=== PATIENT | female | born 1985 | race Asian ===

== ENCOUNTER 2017-07-15 05:54 | Inpatient (IN) | payer SELFPAY ==
[~2017-07-15] VITALS: Ht 160 cm; Wt 56.7 kg
[2017-07-15] MEDS ORDERED: METHYLERGONOVINE 0.2 MG/ML AMP IM PRN ×3 (06:40→21:55)
[2017-07-15] MEDS ORDERED: NALBUPHINE HYDROCHLORIDE 10 MG/ML VIAL IVP PRN (06:40)
[2017-07-15] MEDS ORDERED: PROMETHAZINE 25 MG/ML VIAL IVP PRN (06:40)
[2017-07-15] MEDS ORDERED: CARBOPROST 250 MCG/ML AMP IM PRN (06:40)
[2017-07-15] MEDS ORDERED: LACTATED RINGERS 500 ML IV SCH (06:40)
[2017-07-15] MEDS ORDERED: AMPICILLIN 2,000 MG in NACL 0.9% MINI-BAG PLUS 100 ML IV ONE (07:00)
[2017-07-15] MEDS ORDERED: BUPIVACAINE 0.125%/NS PREMIX 250 ML ONE (07:00)
[2017-07-15 07:20] LABS: BASOPHILS # (AUTO) 0.1 K/uL (0.00-0.22); EOSINOPHILS # (AUTO) 0.1 K/uL (0-0.4); EOSINOPHILS % (AUTO) 1.2 % (0.0-4.0); HEMATOCRIT 36.3 % (36-48); HEMOGLOBIN 12.1 g/dL (12.0-16.0); LYMPHOCYTES # (AUTO) 1.4 K/uL (2.5-16.5); MEAN CORPUSCULAR HEMOGLOBIN 31 pg (27-31); MEAN CORPUSCULAR HGB CONC 34 g/dL (33-37); MEAN CORPUSCULAR VOLUME 92 fL (80-94); MONOCYTES # (AUTO) 0.8 K/uL (0.8-1.0); NEUTROPHILS # (AUTO) 9.2 K/uL (1.8-7.7); NEUTROPHILS % (AUTO) 78.8 % (42.2-75.2); PLATELET COUNT (AUTO) 162 K/uL (140-450); RED BLOOD CELL COUNT(AUTO) 3.96 MIL/uL (4.20-5.40); RED CELL DISTRIBUTION WIDTH 14.1 % (11.6-13.7); WHITE BLOOD COUNT (AUTO) 11.6 K/uL (4.8-10.8)
[2017-07-15 07:35] LABS: APPEARANCE,URINE HAZY (CLEAR); BILIRUBIN,URINE NEGATIVE (NEGATIVE); BLOOD, URINE 3+ (NEGATIVE); COLOR,URINE YELLOW (YELLOW); LEUKOCYTE ESTERASE ,URINE TRACE (NEGATIVE); NITRITE, URINE NEGATIVE (NEGATIVE); UGLUCOSE NEGATIVE (NEGATIVE)
[2017-07-15 07:40] LABS: ALBUMIN 2.4 g/dL (3.4-5.0); ANION GAP 13.6 (8-16); CARBON DIOXIDE 23.8 mmol/L (21-32); CREATININE 0.7 mg/dL (0.6-1.3); POTASSIUM 3.4 mmol/L (3.5-5.1); TOTAL BILIRUBIN 0.2 mg/dL (0.0-1.0)
[2017-07-15] MEDS: LACTATED RINGERS 1,000 ML IV SCH ×3 (07:46→22:00)
[2017-07-15 07:47] VITALS: BP 116/73
[2017-07-15] MEDS ORDERED: OXYTOCIN 20 UNITS in LACTATED RINGERS 1,000 ML IV SCH ×3 (08:20→22:16)
--- NOTE | 2017-07-15 08:34 | NUR ---
PATIENT HAS BEEN SCREENED AND CATEGORIZED LOW NUTRITION RISK. PATIENT WILL BE SEEN WITHIN 7 DAYS OF ADMISSION. 07/21/[address]
[2017-07-15 08:48] LABS: RBC,URINE 3-10 (FEW) /HPF (0-5)
[2017-07-15] MEDS ORDERED: AMPICILLIN 1,000 MG in NACL 0.9% MINI-BAG PLUS 50 ML IV SCH (12:00)
[2017-07-15] MEDS ORDERED: IBUPROFEN 800 MG TAB PO PRN (14:55)
[2017-07-15] MEDS ORDERED: oxyCODONE/APAP 5/325 MG 1 TAB TAB PO PRN ×2 (14:55→21:55)
[2017-07-15] MEDS ORDERED: MEASLES, MUMPS, AND RUBELLA 1 VIAL SQVAC PRN ×2 (14:55→21:55)
[2017-07-15] MEDS ORDERED: HYDROcodone/APAP 5/325 MG 1 TAB TAB PO PRN ×2 (14:55→21:55)
[2017-07-15] MEDS ORDERED: OXYTOCIN 10 UNITS/ML VIAL IM PRN ×2 (14:55→15:05)
[2017-07-15] MEDS ORDERED: BENZOCAINE/MENTHOL 20%-0.5% 60 GM CAN TP PRN (14:55)
[2017-07-15] MEDS ORDERED: TEMAZEPAM 15 MG CAP PO PRN ×2 (14:55→21:55)
[2017-07-15] MEDS ORDERED: AMPICILLIN 2,000 MG VIAL ONE (19:57)
[2017-07-15] MEDS ORDERED: DOCUSATE SOD/SENNA 50/8.6 MG 1 TAB PO SCH (21:00)
[2017-07-15] MEDS ORDERED: ceFAZolin 1,000 MG VIAL ONE (21:08)
[2017-07-15] MEDS ORDERED: MIDAZOLAM 2 MG/2 ML VIAL ONE (21:42)
[2017-07-15] MEDS ORDERED: MORPHINE PRES FREE 10 MG/10 ML AMP IV ONE (21:42)
[2017-07-15] MEDS ORDERED: LIDOCAINE MPF 2% 10ML 200 MG/10ML VIAL INJ ONE (21:45)
[2017-07-15] MEDS ORDERED: OXYTOCIN 10 UNITS/ML VIAL ONE (21:47)
[2017-07-15] MEDS ORDERED: METHYLERGONOVINE 0.2 MG/ML AMP ONE (21:47)
[2017-07-15] MEDS ORDERED: TRIAMCINOLONE 40 MG/ML 5ML VIAL ONE (21:47)
[2017-07-15] MEDS ORDERED: TRIMETHOBENZAMIDE 200 MG/2 ML SYR IM PRN (21:55)
[2017-07-15] MEDS ORDERED: OXYTOCIN 20 UNITS/LR PREMIX 1,000 ML IV ONE (22:16)
[2017-07-15] MEDS ORDERED: diphenhydrAMINE 50 MG/ML VIAL ONE (22:16)
[2017-07-15] MEDS ORDERED: MEPERIDINE 25 MG/ML SYR IVP PRN (22:20)
[2017-07-15] MEDS ORDERED: HYDROmorphone 1 MG/ML AMP IVP PRN (22:20)
[2017-07-15] MEDS ORDERED: ONDANSETRON 4 MG/2 ML VIAL IVP PRN ×2 (22:20)
[2017-07-15] MEDS ORDERED: diphenhydrAMINE 50 MG/ML VIAL IVP PRN ×2 (22:20)
[2017-07-15] MEDS ORDERED: NALBUPHINE 10 MG/ML AMP IVP PRN (22:20)
[2017-07-15] MEDS ORDERED: NALOXONE 0.4 MG/ML VIAL IVP PRN ×3 (22:20)
[2017-07-15] MEDS ORDERED: ONDANSETRON 4 MG/2 ML VIAL ONE (22:53)
[2017-07-16 05:37] LABS: HEMATOCRIT 35.8 % (36-48); HEMOGLOBIN 12.2 g/dL (12.0-16.0); MEAN CORPUSCULAR HEMOGLOBIN 31 pg (27-31); MEAN CORPUSCULAR HGB CONC 34 g/dL (33-37); MEAN CORPUSCULAR VOLUME 90 fL (80-94); PLATELET COUNT (AUTO) 157 K/uL (140-450); RED BLOOD CELL COUNT(AUTO) 3.97 MIL/uL (4.20-5.40); RED CELL DISTRIBUTION WIDTH 14.4 % (11.6-13.7)
[2017-07-16 06:10] LABS: RAPID PLASMA REAGIN NON-REACTIVE (Non Reactiv)
[2017-07-16 06:28] LABS: LYMPHOCYTES % (MANUAL) 3 % (20-46); MONOCYTES % (MANUAL) 6 % (5-12)
[2017-07-16] MEDS: KETOROLAC 30 MG/ML VIAL IM/IVP SCH ×2 (08:14→14:10)
[2017-07-16] MEDS: SIMETHICONE 80 MG TAB.CHEW PO PRN (16:50)
[2017-07-16] MEDS ORDERED: DOCUSATE SOD/SENNA 50/8.6 MG 1 TAB PO SCH (21:00)
[2017-07-16] MEDS ORDERED: BETHANECHOL 25 MG TAB PO SCH (23:30)
[2017-07-16] MEDS ORDERED: BETHANECHOL 25 MG TAB PO PRN (23:35)
[2017-07-17] MEDS: IBUPROFEN 800 MG TAB PO PRN ×3 (00:22→16:55)
[2017-07-17] MEDS: SIMETHICONE 80 MG TAB.CHEW PO PRN (16:58)
[2017-07-18] MEDS ORDERED: IBUP-2217 PO (08:34)
[2017-07-18] MEDS ORDERED: INFLUENZA VIRUS VACCINE QUAD 0.5 ML SYR IMVAC SCH (11:45)
== END 2017-07-18 13:25 | disposition home or self-care (01) | DRG 766 ==
LOC: MLD 05:54 → MFCC 23:30
PROVIDERS: ADMIT Obstetrics & Gynecology; ATTEND Obstetrics & Gynecology
PROC: 10D00Z1 Extraction of Products of Conception, Low, Open Approach (ICD-10-PCS; principal; 2017-07-15 21:30)
PROC: 3E0234Z Introduction of Serum, Toxoid and Vaccine into Muscle, Percutaneous Approach (ICD-10-PCS; 2017-07-18)
DX: O62.2 Other uterine inertia (principal); O77.0 Labor and delivery complicated by meconium in amniotic fluid; Z37.0 Single live birth; Z3A.39 39 weeks gestation of pregnancy; Z23 Encounter for immunization
CPT/HCPCS: 36415; 51702; 80053; 81001; 85025; 85610; 85730; 86592; 86762; 86886; 86900; 86901; 87086; 87340; 90658; 90715; J0290; J0690; J1200; J1885; J2001; J2210; J2250; J2270; J2405; J2590; J3301; J3490; J7060; J7120